=== PATIENT | female | born 1990 | race Caucasian/White ===

== ENCOUNTER → 2023-06-06 10:46 | Outpatient (REF) | payer OTHER, SELFPAY | LOC: PNTC 10:46 | PROVIDERS: ATTENDING PHYSICIAN Obstetrics & Gynecology | DX: Z36.0 Encounter for antenatal screening for chromosomal anomalies (principal); Z36.82 Encounter for antenatal screening for nuchal translucency | CPT/HCPCS: 76801; 76813 ==

== ENCOUNTER → 2023-10-01 09:22 | Outpatient (REF) | payer OTHER, SELFPAY | LOC: PNTC 09:22 | PROVIDERS: ATTENDING PHYSICIAN Obstetrics & Gynecology | DX: Z34.90 Encounter for supervision of normal pregnancy, unspecified, unspecified trimester (principal) | CPT/HCPCS: 36415; 86850; 86900; 86901; J2790 ==

== ENCOUNTER 2023-10-20 14:35 | Emergency (ER) | payer OTHER, SELFPAY ==
[2023-10-20 14:38] VITALS: BP 129/78
[2023-10-20 16:08] VITALS: BMI 29.4
[2023-10-20 16:10] VITALS: BP 135/77
[2023-10-20 16:41] LABS: ALT (SGPT) 40 U/L (0-35); AST (SGOT) 69 U/L (14-36); Albumin 3.6 g/dl (3.5-5.0); Alkaline Phosphatase 83 U/L (38-126); Blood Urea Nitrogen 13 mg/dl (7-17); Calcium 8.7 mg/dl (8.4-10.2); Carbon Dioxide 22 mmol/L (22-30); Chloride 105 mmol/L (98-107); Estimated Creatinine Clearance 116 ml/min; Glucose 92 mg/dl (70-99); Potassium 3.4 mmol/L (3.5-5.1); Sodium 134 mmol/L (135-145); Total Bilirubin 0.9 mg/dl (0.2-1.3); Total Protein 6.1 g/dl (6.3-8.2); eGFR > 60.00
--- NOTE | 2023-10-20 16:56 | ED.GENMED ---
History of Present Illness
General
Chief Complaint: Chest Pain
Source: patient
Exam Limitations: none
Time Seen by Provider: 10/20/23 16:28
History of Present Illness
History of Present Illness:
33-year-old female currently 32 weeks with her first presents with the onset of upper abdominal lower chest pain. She states she was at a fair and was walking around did well had lunch at the fair including a hamburger. She sat
down in a car afterwards and developed upper abdominal pain with chest pain. The pain radiated to her back. There was no significant shortness of breath. It was not pleuritic in nature. The pain progressed and she presented here for evaluation.
She vomited in triage and since then she has felt much better. No leg swelling or calf pain. No further abdominal pain. She denies fevers or cough.
Phy Exam
Physical Exam
Physical Exam:
General: Well-appearing female no acute respiratory distress
HEENT: Normocephalic atraumatic
Heart: Regular rate and rhythm no murmurs
Lungs: Clear no wheeze
Abdomen: Gravid nontender specifically in the right upper quadrant or epigastric region
Ext: No cyanosis or edema
skin: Warm, no rash
Scores
Heart Score for Chest Pain Patients
STEMI patient?: No
History: Slightly or Non-Suspicious
ECG: Normal
Age: </= 45 years
Risk Factors: No Risk Factors
Troponin: </= Normal Limit
Heart Score for Chest Pain Patients: 0
Heart Score Risk: 2.5% MACE over next 6 weeks
Course
Orders/Labs/Results
Orders:
Orders
10/20/23 14:37
Electrocardiogram (*1) Urgent
Reason for Study: Chest Pain
10/20/23 14:38
EKG- Treatment ONCE
10/20/23 16:17
CMP [Comprehensive Metabolic Panel] Urgent
Complete Blood Count/With Diff Urgent
Lipase Urgent
Comment: ADD ON
Troponin I Urgent
10/20/23 16:40
Add On- LAB Urgent
Tests Added?: lipase
10/20/23 17:00
US Abdomen Complete/Upper Urgent
Comment:
Reason For Exam: epigastric pain
Abnormal Lab Results
10/20/23
16:17
RBC 3.43 L 10^6/uL
(4.20-5.40)
Hct 29.2 L %
(37.0-47.0)
MCH 32.7 H pg
(27.0-31.0)
MCHC 38.4 H g/dL
(33.0-37.0)
Absolute Neuts (auto) 6.8 H 10^3/uL
(1.4-6.5)
Absolute Lymphs (auto) 0.9 L 10^3/uL
(1.2-3.4)
Absolute Monos (auto) 0.7 H 10^3/uL
(0.1-0.6)
Neutrophils % 81.0 H %
(42.2-75.2)
Lymphocytes % 10.4 L %
(20.5-51.1)
Sodium 134 L mmol/L
(135-145)
Potassium 3.4 L mmol/L
(3.5-5.1)
AST 69 H U/L
(14-36)
ALT 40 H U/L
(0-35)
Total Protein 6.1 L g/dl
(6.3-8.2)
10/20/23 16:17
10/20/23 16:17
Vital Signs
Initial and Last Documented VS:
Initial Vital Signs
Temp Pulse Resp BP Pulse Ox
97.4 F 77 18 129/78 99
10/20/23 14:38 10/20/23 14:38 10/20/23 14:38 10/20/23 14:38 10/20/23 14:38
Last Documented Vital Signs
Temp Pulse Resp BP Pulse Ox
97.4 F 79 16 123/69 98
10/20/23 14:38 10/20/23 17:52 10/20/23 17:52 10/20/23 17:52 10/20/23 17:52
MDM/Problems Addressed
Differential Diagnosis Includes:
Patient triaged as chest pain but I believe the patient was having abdominal pain from where she points to on exam. EKG through triage showed sinus rhythm. Pain is not relieved after vomiting. Do not suspect PE. Troponin pending. Lipase
pending. Will check liver functions
*Critical Care Note
Total Time (30-74mins, 75-104mins- exclusive of procedures): Not Applicable
Update Note
Update Note:
Patient reevaluated still asymptomatic. Labs reviewed slight elevation of the transaminases. AST is 69 ALT is 40 but normal bilirubin. Ultrasound was ordered secondary to the pain she described and elevated LFTs. There is cholelithiasis without
secondary signs of cholecystitis. Common bile duct is not dilated. I suspect her symptoms may have been related to biliary colic however given her gravid status would not recommend any acute surgical intervention at this time. Recommended lots of
clear liquids and low-fat diet. Stable for discharge. Return precautions were given
ED Attending Note
-
Portions of this chart may have been created with voice recognition software.� Occasional wrong word or��sound alike� substitutions may have occurred due to the inherent limitations of voice recognition software.
Discharge Plan
Departure
Patient Disposition: Home (Routine Discharge)
Date of Disposition: 10/20/23
Time of Disposition: 19:30
Patient with high blood pressure during this ER visit?: No
Discharge Problem:
Abdominal pain
Instructions: Gallstones (DC)
Referrals:
Jeff Chaudhary MD [Family Provider] -
Activity Restrictions/Additional Instructions:
Drink plenty of liquids. Eat a low-fat diet. Please return here for severe pain vomiting fever or other concerning finding. Follow-up with your [facility] and consider surgical follow-up if symptoms persist
Interventions
Interventions:
*Risk Screen - Suicide Last Done: 10/20/23 16:10
*General Assessment Last Done: 10/20/23 16:10
*Neglect/Abuse Screening Last Done: 10/20/23 16:10
ED- Fall Risk Assessment Last Done: 10/20/23 16:10
*ED COVID-19 Vaccine History Last Done: 10/20/23 16:10
ED- Cardiac Assessment Last Done: 10/20/23 16:10
Discharge Date and Time
Print Language: LATVIAN
[2023-10-20 16:57] LABS: % Basophils 0.1 % (0-2); % Eosinophils 0.4 % (0-6); % Immature Granulocytes 0.4 % (0-0.5); % Lymphocytes 10.4 % (20.5-51.1); % Monocytes 7.7 % (1.7-9.3); Absolute Lymphocytes 0.9 10^3/uL (1.2-3.4); Absolute Monocytes 0.7 10^3/uL (0.1-0.6); Absolute Neutrophils 6.8 10^3/uL (1.4-6.5); Hematocrit 29.2 % (37.0-47.0); Lipase 192 U/L (23-300); Mean Corp Hgb Conc. 38.4 g/dL (33.0-37.0); Mean Corpuscular Hgb 32.7 pg (27.0-31.0); Mean Corpuscular Volume 85.1 fL (81.0-99.0); Mean Platelet Volume 9.8 fL (7.4-10.4); Nucleated Red Blood Cells % 0 %; Platelet Count 162 10^3/uL (130-400); Red Blood Cell Count 3.43 10^6/uL (4.20-5.40); Red Cell Dist. Width 12.1 % (11.5-14.5); White Blood Cell Count 8.4 10^3/uL (4.8-10.8)
[2023-10-20 17:01] LABS: Troponin I < 0.012 ng/ml
[2023-10-20 17:52] VITALS: BP 123/69
[2023-10-20 19:38] VITALS: BP 121/72
== END 2023-10-20 20:17 | disposition home or self-care (01) ==
LOC: EMR 14:35
PROVIDERS: Emergency Medicine; EMERGENCY PHYSICIAN Emergency Medicine; FAMILY PHYSICIAN Family Medicine
DX: O26.893 Other specified pregnancy related conditions, third trimester (principal); Z3A.32 32 weeks gestation of pregnancy; R10.13 Epigastric pain; R07.89 Other chest pain; R11.10 Vomiting, unspecified; K80.20 Calculus of gallbladder without cholecystitis without obstruction
CPT/HCPCS: 99284; 76700; 80053; 83690; 84484; 85025; 93005

== ENCOUNTER 2023-11-28 17:23 | Observation (INO) | payer OTHER, SELFPAY ==
[2023-11-28 17:38] VITALS: BP 138/89; BMI 29.1
[2023-11-28 18:00] LABS: % Basophils 0.3 % (0-2); % Eosinophils 0.7 % (0-6); % Immature Granulocytes 0.3 % (0-0.5); % Lymphocytes 20.4 % (20.5-51.1); % Neutrophils 69.3 % (42.2-75.2); Absolute Lymphocytes 1.2 10^3/uL (1.2-3.4); Absolute Monocytes 0.5 10^3/uL (0.1-0.6); Absolute Neutrophils 4.1 10^3/uL (1.4-6.5); Hematocrit 31.2 % (37.0-47.0); Hemoglobin 11.6 g/dL (12.0-16.0); Mean Corp Hgb Conc. 37.2 g/dL (33.0-37.0); Mean Corpuscular Hgb 31.6 pg (27.0-31.0); Nucleated Red Blood Cells % 0 %; Platelet Count 169 10^3/uL (130-400); Red Blood Cell Count 3.67 10^6/uL (4.20-5.40); Red Cell Dist. Width 12.2 % (11.5-14.5)
[2023-11-28 18:21] LABS: ALT (SGPT) 37 U/L (0-35); AST (SGOT) 34 U/L (14-36); Alkaline Phosphatase 191 U/L (38-126); Blood Urea Nitrogen 14 mg/dl (7-17); Calcium 8.7 mg/dl (8.4-10.2); Chloride 106 mmol/L (98-107); Glucose 86 mg/dl (70-99); Potassium 3.8 mmol/L (3.5-5.1); Sodium 137 mmol/L (135-145); Total Bilirubin 0.6 mg/dl (0.2-1.3)
[2023-11-28 18:24] LABS: Protein/creatinine Ratio 0.1; Urine Protein 10 mg/dl
[2023-11-28 18:29] LABS: Albumin 3.5 g/dl (3.5-5.0); Carbon Dioxide 16 mmol/L (22-30); Estimated Creatinine Clearance 98 ml/min; Total Protein 6.1 g/dl (6.3-8.2); eGFR > 60.00
== END 2023-11-28 19:03 | disposition home or self-care (01) ==
LOC: LDRP 17:23
PROVIDERS: Obstetrics & Gynecology; ADMITTING PHYSICIAN Obstetrics & Gynecology; FAMILY PHYSICIAN Family Medicine
DX: R03.0 Elevated blood-pressure reading, without diagnosis of hypertension (principal); Z3A.37 37 weeks gestation of pregnancy
CPT/HCPCS: 80053; 82570; 84156; 85025; 86850; 86870; 86900; 86901; G0378

== ENCOUNTER 2023-11-29 12:31 | Inpatient (IN) | payer OTHER, SELFPAY ==
[2023-11-29] MEDS: LR 1000 IV (12:30)
[2023-11-29 12:36] VITALS: BP 157/90; BMI 29.2
[2023-11-29 13:19] LABS: % Basophils 0.3 % (0-2); % Eosinophils 0.5 % (0-6); % Immature Granulocytes 0.3 % (0-0.5); % Lymphocytes 16.3 % (20.5-51.1); % Monocytes 8.8 % (1.7-9.3); % Neutrophils 73.8 % (42.2-75.2); Absolute Monocytes 0.5 10^3/uL (0.1-0.6); Absolute Neutrophils 4.5 10^3/uL (1.4-6.5); Hematocrit 33.4 % (37.0-47.0); Hemoglobin 12.3 g/dL (12.0-16.0); Mean Corp Hgb Conc. 36.8 g/dL (33.0-37.0); Mean Corpuscular Hgb 31.6 pg (27.0-31.0); Mean Corpuscular Volume 85.9 fL (81.0-99.0); Nucleated Red Blood Cells % 0 %; Platelet Count 174 10^3/uL (130-400); Red Blood Cell Count 3.89 10^6/uL (4.20-5.40); Red Cell Dist. Width 12.2 % (11.5-14.5); White Blood Cell Count 6.1 10^3/uL (4.8-10.8)
[2023-11-29 13:32] LABS: ALT (SGPT) 35 U/L (0-35); AST (SGOT) 35 U/L (14-36); Albumin 3.7 g/dl (3.5-5.0); Alkaline Phosphatase 207 U/L (38-126); Blood Urea Nitrogen 12 mg/dl (7-17); Calcium 9.3 mg/dl (8.4-10.2); Carbon Dioxide 18 mmol/L (22-30); Chloride 107 mmol/L (98-107); Estimated Creatinine Clearance 112 ml/min; Glucose 82 mg/dl (70-99); Potassium 4.2 mmol/L (3.5-5.1); Sodium 139 mmol/L (135-145); Total Bilirubin 0.7 mg/dl (0.2-1.3); Total Protein 6.3 g/dl (6.3-8.2); eGFR > 60.00
[2023-11-29 13:45] LABS: Protein/creatinine Ratio 0.9; Urine Protein 14 mg/dl
[2023-11-29] MEDS: CYTOTEC 25 MICROGRAM VAG (15:32)
[2023-11-29] MEDS: CYTOTEC 50 MICROGRAM PO (19:59)
[2023-11-30] MEDS: CYTOTEC 50 MICROGRAM PO ×2 (00:13→04:14)
[2023-11-30] MEDS: CYTOTEC PO (08:26)
[2023-11-30] MEDS: PITOCIN 30 UNITS/NSS 500 ML IV ×2 (09:45→18:30)
[2023-11-30] MEDS: LR 1000 IV ×3 (09:45→17:00)
[2023-11-30] MEDS: FENTANYL/BUPIVACAINE 100 EPIDURAL (14:18)
[2023-11-30] MEDS: SUBLIMAZE 100 MCG EPIDURAL (14:18)
[2023-12-01] MEDS: MOTRIN 600 MG PO ×3 (00:17→15:48)
[2023-12-01 05:47] LABS: Hematocrit 34.2 % (37.0-47.0); Hemoglobin 12.6 g/dL (12.0-16.0); Mean Corp Hgb Conc. 36.8 g/dL (33.0-37.0); Mean Corpuscular Hgb 31.9 pg (27.0-31.0); Mean Corpuscular Volume 86.6 fL (81.0-99.0); Mean Platelet Volume 11.2 fL (7.4-10.4); Platelet Count 172 10^3/uL (130-400); Red Blood Cell Count 3.95 10^6/uL (4.20-5.40); Red Cell Dist. Width 12.2 % (11.5-14.5); White Blood Cell Count 9.4 10^3/uL (4.8-10.8)
[2023-12-01] MEDS: SENOKOT-S 1 TABLET PO (07:50)
[2023-12-01] MEDS: PRENATAL PLUS 1 TABLET PO (07:50)
[2023-12-01] MEDS: RHOGAM 300 MCG IM (16:36)
[2023-12-01] MEDS: PROCARDIA XL (EXTENDED RELEASE) 30 MG PO (16:37)
[2023-12-02] MEDS: MOTRIN 600 MG PO (01:18)
[2023-12-02] MEDS: PRENATAL PLUS 1 TABLET PO (13:34)
[2023-12-02] MEDS: SENOKOT-S 1 TABLET PO (13:34)
[2023-12-02] MEDS: PROCARDIA XL (EXTENDED RELEASE) 60 MG PO (16:48)
[2023-12-02] MEDS: PROCARDIA XL (EXTENDED RELEASE) PO (17:30)
[2023-12-03] MEDS: PRENATAL PLUS 1 TABLET PO (09:13)
[2023-12-03 10:41] LABS: Syphilis/T. pallidum Ab Reflex Negative (Negative)
== END 2023-12-03 14:36 | disposition home or self-care (01) | DRG 807 ==
LOC: LDRP 12:31
PROVIDERS: Obstetrics & Gynecology; ADMITTING PHYSICIAN Obstetrics & Gynecology
PROC: 3E0P7VZ Introduction of Hormone into Female Reproductive, Via Natural or Artificial Opening (ICD-10-PCS; 2023-11-29)
PROC: 3E033VJ Introduction of Other Hormone into Peripheral Vein, Percutaneous Approach (ICD-10-PCS; 2023-11-29)
PROC: 0UQMXZZ Repair Vulva, External Approach (ICD-10-PCS; 2023-11-30)
PROC: 10E0XZZ Delivery of Products of Conception, External Approach (ICD-10-PCS; 2023-11-30)
PROC: 4A1HXCZ Monitoring of Products of Conception, Cardiac Rate, External Approach (ICD-10-PCS; 2023-11-30)
PROC: 0HQ9XZZ Repair Perineum Skin, External Approach (ICD-10-PCS; 2023-11-30)
PROC: 3E0234Z Introduction of Serum, Toxoid and Vaccine into Muscle, Percutaneous Approach (ICD-10-PCS; 2023-12-01)
DX: O14.94 Unspecified pre-eclampsia, complicating childbirth (principal); Z37.0 Single live birth; O69.81X0 Labor and delivery complicated by cord around neck, without compression, not applicable or unspecified; O70.0 First degree perineal laceration during delivery; Z3A.37 37 weeks gestation of pregnancy; O26.893 Other specified pregnancy related conditions, third trimester; Z67.31 Type AB blood, Rh negative
CPT/HCPCS: 88307; 80053; 82570; 84156; 85025; 85027; 85461; 86780; J2790

== ENCOUNTER → 2024-12-03 06:55 | Outpatient (REF) | payer OTHER, SELFPAY | LOC: HWRAD 06:55 | PROVIDERS: ATTENDING PHYSICIAN Physician Assistant Medical | DX: R10.11 Right upper quadrant pain (principal); K80.20 Calculus of gallbladder without cholecystitis without obstruction | CPT/HCPCS: 76700 ==